=== PATIENT | male | born 1975 | race Caucasian/White ===

== ENCOUNTER 2018-07-21 13:19 | Emergency (ER) | payer MEDICAID ==
[2018-07-21] MEDS ORDERED: HYDROmorphONE/DILAUDID 2 MG/ML INJ IVP ONE (13:43)
[2018-07-21] MEDS ORDERED: ONDANSETRON 4 MG/2 ML VIAL IVP ONE (13:43)
[2018-07-21] MEDS ORDERED: NS 1,000 ML IV ONE (13:43)
--- NOTE | 2018-07-21 13:47 | EDPHY ---
H & P Stated Complaint: R UPPER ABD PAIN RADIATES TO BACK X 3 DAYS Time Seen by Provider: 07/21/18 13:30 HPI/ROS: CHIEF COMPLAINT: Abdominal pain HISTORY OF PRESENT ILLNESS: 43-year-old male states that for the last 3 days he has had right upper quadrant abdominal pain with radiation around to his back. Patient has severe episode 3 days ago and again last night. Reports the pain feels crampy. Nausea but no vomiting. No fevers. No urinary complaints. Does have a history of kidney stones but reports that this feels different in location. Father and other men in his family have fact gallbladder disease. Denies chest pain or shortness of breath. No recent URI symptoms. No diarrhea. REVIEW OF SYSTEMS: A comprehensive 10 system review of systems was reviewed and is otherwise negative aside from elements mentioned in the history of present illness. PAST MEDICAL HISTORY: History of indigestion occasionally. Reports this feels different. SOCIAL HISTORY: Smokes marijuana, social alcohol. No illicit drug use. VITAL SIGNS Reviewed by me. GENERAL: Well-developed, well-nourished, resting comfortably in no respiratory distress. HEENT: Atraumatic. Eyes: No icterus, no injection. Mouth: moist mucous membranes. No erythema or lesions. Neck: supple with no adenopathy. LUNGS: Clear to auscultation bilaterally, no wheezes, rhonchi or rales. CARDIAC: Regular rate and rhythm, no rubs, murmurs or gallops. ABDOMEN: Soft, mild tenderness right upper quadrant. Increased discomfort with inspiration. No fluid wave. No distension. No guarding or rebound. BACK: No CVA tenderness. Does indicate the area of pain right posterior chest , nonpalpable. EXTREMITIES: No trauma. No edema. Range of motion is normal throughout. NEURO: Alert and oriented, grossly nonfocal. SKIN: Warm and dry, no rash. PSYCHIATRIC: Normal mentation, no agitation. - Personal History Current Tetanus Diphtheria and Acellular Pertussis (TDAP): Yes - Medical/Surgical History Hx Asthma: No Hx Chronic Respiratory Disease: No Hx Diabetes: No Hx Cardiac Disease: No Hx Renal Disease: No Hx Cirrhosis: No Hx Alcoholism: No Hx HIV/AIDS: No Hx Splenectomy or Spleen Trauma: No Other PMH: KIDNEY STONES - Social History Smoking Status: Never smoked Constitutional: Initial Vital Signs Temperature (C) 36.5 C 07/21/18 13:22 Heart Rate 60 07/21/18 13:22 Respiratory Rate 18 07/21/18 13:22 Blood Pressure 121/91 H 07/21/18 13:22 O2 Sat (%) 95 07/21/18 13:22 O2 Delivery Mode Room Air Allergies/Adverse Reactions: No Known Allergies Allergy (Unverified 07/21/18 13:22) Home Medications: Medication Instructions Recorded Ondansetron Odt [Zofran Odt 4 mg 4 mg PO Q6 PRN #8 tab 07/21/18 (RX)] Medical Decision Making - Diagnostics Imaging Results: Abdomen Ultrasound 07/21/18 13:43 Impression: 1. Hepatomegaly with moderate diffuse fatty infiltration of the liver (steatosis ). 2. Normal appearance to the gallbladder, with no cholelithiasis, cholecystitis, or bile duct dilatation. Findings were discussed with Ina Segal MD at 14:33, on 07/21/2018. Chest X-Ray 07/21/18 14:37 Impression: Clear lungs. No pneumoperitoneum or acute process. Abdomen CT 07/21/18 15:42 Impression: 1. Query mild gastroduodenitis, and upper abdominal low-grade mesenteric adenitis. 2. Moderate hepatomegaly and diffuse steatosis. 3. Nonobstructive nephrolithiasis. Findings were discussed with Ina Segal MD at 16:47, on 07/21/2018. ED Course/Re-evaluation: IV placed. Patient received 0.5 mg of Dilaudid and Zofran for nausea. Right upper quadrant ultrasound was ordered to evaluate for gallstone disease. Ultrasound report to me as showing no gallbladder disease. Fatty infiltration of the liver. No common bile duct dilatation, gallbladder wall thickening, gallstones, or pericholecystic fluid. Patient was reexamined and I discussed results of the ultrasound. We will try dose of Protonix. Patient will also give us a urine sample. Chest x-ray obtained to evaluate for right lower lobe infiltrate as a cause of the patient' s discomfort. Urinalysis demonstrates no hematuria, no signs of infection. Chest x-ray is negative. Patient was reexamined. Still reporting abdominal discomfort. Discussed CT scanning which patient would like to have done. CT scan demonstrated potential early gastroduodenitis. DW patient. Encouraged over the counter prilosec and follow up with PCP/GI as soon as possible. Patient understands instructions and need for followup. Differential Diagnosis: After obtaining the patients history and performing an examination, differential diagnosis considered included but was not limited to appendicitis, cholecystitis, gastritis, pancreatitis, kidney stones, urinary tract infections , constipation, liver mass or tumor and other causes. - Data Points Laboratory Results: Laboratory Results 07/21/18 13:48 07/21/18 13:48 Medications Given: Discontinued Medications Hydromorphone HCl (Dilaudid) 0.5 mg IVP EDNOW ONE Stop: 07/21/18 13:44 Last Admin: 07/21/18 13:52 Dose: 0.5 mg Sodium Chloride (Ns) 1,000 mls @ 0 mls/hr IV EDNOW ONE; Wide Open PRN Reason: Protocol Stop: 07/21/18 13:44 Last Admin: 07/21/18 13:47 Dose: 1,000 mls Ondansetron HCl (Zofran) 4 mg IVP EDNOW ONE Stop: 07/21/18 13:44 Last Admin: 07/21/18 13:52 Dose: 4 mg Pantoprazole Sodium (Protonix) 40 mg PO EDNOW ONE Stop: 07/21/18 15:10 Last Admin: 07/21/18 15:16 Dose: 40 mg Departure - Departure Disposition: Home, Routine, Self-Care Clinical Impression: Duodenitis Condition: Good Instructions: Gastritis (ED), Acute Abdominal Pain (DC), Duodenitis (ED) Additional Instructions: Your CT scan indicates inflammation of the duodenum. I recommend beginning a 2 week course of Prilosec. This is available over-the- counter. I recommend follow up with Gastroenterology. It is possible that you may need an upper GI. For your abdominal pain, I suggested you start with a bland diet and advance as tolerated. This means start with clear liquids such as water, Gatorade, juice, flat non- caffeinated soda. If you tolerate clear liquids, then you may add bland foods such as bananas, rice, or toast. If you do not have any worsening of your symptoms, you may begin to resume a regular diet. Please return to the emergency department or seek care urgently if you have worsening abdominal pain, abdominal pain associated with fever, vomiting, or other concerns. Okay to use Tylenol if needed for pain. Okay to take Zofran as needed for nausea Please reduced amount of alcohol that you drink until your symptoms are resolving. Referrals: Clayton King MD [Primary Care Provider] - As per Instructions August Phillips MD, FACG [Medical Doctor] - As per Instructions Prescriptions: Ondansetron Odt [Zofran Odt 4 mg (RX)] 4 mg PO Q6 PRN #8 tab PRN Reason: Nausea
[2018-07-21 14:04] LABS: PLATELET COUNT 292 10^3/uL (150-400)
[2018-07-21] MEDS ORDERED: PANTOPRAZOLE SODIUM 40 MG TAB PO ONE (15:09)
[2018-07-21] MEDS ORDERED: IOPAMIDOL (ISOVUE-300) 100 ML BTL ONE (16:01)
[2018-07-21 17:21] VITALS: BP 129/86
== END 2018-07-21 17:21 | disposition home or self-care (01) ==
DX: K29.80 Duodenitis without bleeding (principal); E86.9 Volume depletion, unspecified
CPT/HCPCS: 96374; J1170; J2405; Q9967